=== PATIENT | female | born 1990 | race Caucasian/White ===

== ENCOUNTER → 2022-09-05 15:39 | Outpatient (CLI) | payer OTHER, SELFPAY ==
--- NOTE | ~2022-09-05 | MR_ITS ---
EXAMINATION: MR brain/brain stem wo/w con DATE: 09/05/2022 16:30 INDICATION: Chiari I malformation with return of symptoms TECHNIQUE: Magnetic resonance imaging (MRI) of the brain and brainstem was performed without and with 14 mL Multihance intravenous contrast. Sequences included sagittal and axial T1-weighted SE, axial d iffusion-weighted FS SE, axial 3D SWAN, axial T2-weighted FLAIR, and axial T2-weighted FSE. Postcontr ast axial and coronal T1-weighted SE was obtained. Apparent diffusion coefficient (ADC) maps were cre ated. COMPARISON: Cervical spine MR dated 08/05/2013 FINDINGS: Again seen are changes of a posterior fossa decompression including resection of the posterior half o f the ring of C1 for a Chiari I malformation. There are no areas of restricted diffusion to suggest a cute infarction. No intracranial hemorrhage or abnormal intracranial mass lesion. There are no intrap arenchymal signal abnormalities seen on the other pulse sequences. The ventricles are symmetric and n ormal in size. The basal cisterns remain patent. There are no abnormal extra-axial fluid collections. Flow voids are seen in the cerebral arteries on the T2-weighted sequences consistent with their expe cted patency. Contrast enhanced developmental venous anomalies are seen in the anterior left temporal lobe and in the right parietal lobe. Mild mucosal thickening the bilateral ethmoid and maxillary sin uses. Visualized orbits and soft tissues are unremarkable. There are no areas of abnormal enhancement on the post contrast images. IMPRESSION: 1. No acute intracranial process. 2. Chiari I malformation with change of prior posterior fossa decompression including resection of th e posterior half of the ring of C1. 3. 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 Reviewed, dictated and finalized at location A. AND [employer] IMPRESSION: 1. No acute intracranial process. 2. Chiari I malformation with change of prior posterior fossa decompression inc luding resection of the posterior half of the ring of C1. 3. 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
== END ==
PROVIDERS: Visit Provider Physician Assistant
DX: R20.2 Paresthesia of skin (principal); G93.5 Compression of brain; Q28.3 Other malformations of cerebral vessels
CPT/HCPCS: 70553; A9577

== ENCOUNTER 2022-11-01 10:20 | Outpatient (CLI) | payer OTHER, SELFPAY ==
[2022-11-01 17:17] LABS: Kit Draw Collected
== END 2022-11-01 10:21 | disposition home or self-care (01) ==
LOC: ANHGOSHLAB 10:21
PROVIDERS: PCP Family Medicine; Visit Provider Family Medicine
DX: Z00.8 Encounter for other general examination (principal)
CPT/HCPCS: 36415

== ENCOUNTER 2023-05-16 14:47 | Outpatient (CLI) | payer OTHER, SELFPAY | END 2023-05-16 14:48 | disposition home or self-care (01) | LOC: ANHGOSHLAB 14:48 | PROVIDERS: PCP Family Medicine; Visit Provider Family Medicine | DX: F41.9 Anxiety disorder, unspecified (principal) | CPT/HCPCS: 36415; 84443 ==

== ENCOUNTER 2024-05-07 09:01 | Outpatient (CLI) | payer OTHER, SELFPAY ==
[2024-05-07 15:45] LABS: Basophils Percent Auto 0.4 % (0.2-1.2); Eosinophils Absolute Auto 0.1 K/mm3 (0-0.3); Eosinophils Percent Auto 1.6 % (0-4.4); Hematocrit 43.3 % (37.0-47.0); Hemoglobin 14.1 g/dL (12.0-15.0); Immature Granulocyte Absolute 0.01 K/mm3 (0.00-0.031); Immature Granulocyte Percent A 0.2 % (0-0.5); Lymphocytes Absolute Auto 1.57 K/mm3 (0.9-3.2); Lymphocytes Percent Auto 31.7 % (18.3-44.2); Mean Corpuscular HGB Conc 32.6 g/dl (32-36); Mean Corpuscular Hemoglobin 32.3 pg (26-34); Mean Corpuscular Volume 99.3 fl (80-100); Mean Platelet Volume 10.1 fl (7.4-10.4); Monocytes Absolute Auto 0.3 K/mm3 (0.1-0.6); Monocytes Percent Auto 5.3 % (2.6-8.5); Neutrophils Percent Auto 60.8 % (45.5-73.1); Platelet Count Result 292 k/mm3 (150-375); Red Blood Count 4.36 M/mm3 (4.2-5.4); Red Cell Distribution Width 12.1 % (11.5-14.5)
[2024-05-07 18:14] LABS: Alanine Aminotransferase 31 U/L (6-35); Albumin Level 4.8 g/dL (3.5-5.1); Alkaline Phosphatase 38 U/L (38-126); Anion Gap 10 mmol/L (4-12); Aspartate Amino Transferase 42 U/L (14-36); Bilirubin,Total 0.6 mg/dL (0.2-1.3); Blood Urea Nitrogen 18 mg/dL (7-17); Calcium 9.5 mg/dL (8.4-10.2); Carbon Dioxide 30 mmol/L (22-30); Chloride 97 mmol/L (98-107); Cholesterol 169 mg/dL (0-200); Estimated Glomerular Filt Rate > 60; Glucose 89 mg/dL (65-110); HDL Direct 66 mg/dL; Potassium 4.3 mmol/L (3.4-5.0); Sodium 137 mmol/L (137-145); Triglycerides 108 mg/dL (<150)
[2024-05-07 18:24] LABS: LDL Cholesterol Direct 67 mg/dL
[2024-05-07 18:41] LABS: Vitamin D 25 Hydroxy 34.3 ng/mL
[2024-05-13 17:04] LABS: Thyroid Peroxidase Antibodies 1 IU/mL (<9)
== END 2024-05-07 09:02 | disposition home or self-care (01) ==
LOC: ANHGOSHLAB 09:03
PROVIDERS: PCP Family Medicine; Visit Provider Family Medicine
DX: R53.83 Other fatigue (principal); R41.89 Other symptoms and signs involving cognitive functions and awareness; F41.9 Anxiety disorder, unspecified
CPT/HCPCS: 36415; 80053; 80061; 82306; 82607; 82728; 84443; 85025; 86376

== ENCOUNTER 2025-08-15 08:19 | Outpatient (CLI) | payer OTHER, SELFPAY ==
--- OUTSIDE RECORDS SUMMARY | 2025-08-15 08:23 | XMS_ITS | Clinical Summary ---
Author Organization [facility] Address [address] [place] [address] Care Team Providers Care Legal Services Professional Name Role Phone Dottie Iverson MD Primary Care Provider + Acosta Christensen MD Unavailable [phone] Allergies Active Allergy Reactions Criticality Noted Date Comments Sesame Oil Rash Medium 03/11/2018 Medications mv-min/iron/folic /calcium/vitK (WOMEN'S MULTIVITAMIN ORAL) Take by mouth Active buPROPion SR (WELLBUTRIN SR) 150 mg 12 hr tablet 08/19/2024 Active rizatriptan (MAXALT) 10 mg tablet Take one tablet at onset of headaches, may repeat in 2 hours if needed max dose does 3 in 24 hours 27 tablet 3 05/26/2025 Active erenumab-aooe (Aimovig Autoinjector) 70 mg/mL auto-injector subcutaneous injection Inject 1 mL (70 mg total) under the skin every 30 (thirty) days 3 mL 1 06/22/2025 Active Active Problems Patient Care Coordination No te Formatting of this note is d ifferent from the original. IVF Check List Partner name: Partner : Blue Plan Completed: yes Protocol: FET with modified natural cycle/Crinone Special Instructions: needs TSH, SHG LMP: Cycles: EMP: [x]PNV []OCPS [x]Zithromax/Doxy [x]Medrol []Letrozole []Clomid []Estrace 2mg BID/TID - []Gonal F/Follistim []Menopur []Lupron []Cetrotide/Ganirelix []HCG []Lupron Trigger [x]Crinone []Lovenox/ Baby ASA start - Cycle Start BMI: Body mass index is 26.39 kg/m . CPAP Needed: No [] Medically Clear [x] Orientation: [] Placed on IVF Schedule [] Financially Clear (day 3 labs and dates needed): [] Consent Sent [] Consents Returned/Scanned into chart: [] Schedule Mailed/sent via Easy Taxit: [] IVF Injectable Meds Ordered - Pharm - [] IVF Oral Meds Pharm - [] Smart Set Orders Placed [] Confirmed Start Button [] COVID Counseling note sent to patient Problem Noted Date Diagnosed Date Benign paroxysmal positional vertigo 04/22/2024 Encounter for preconception consultation 022 Assessment & Plan (11/09/2021 1:46 PM [employer]): Discussed general preconception counseling with the patient. We reviewed all chronic medical conditions (please see individual problems for specific counseling) as well as medications, indications for her medications as well as their safety profile in . Assessed safey at home. We discussed the importance of vitamin and folic acid supplementation. We also discussed substance use and its impact on outcomes. We also discussed immunization status and discussed current recommendations for influenza and COVID vaccination in . IVF 11/09/2021 Assessment & Plan (11/09/2021 1:51 PM [employer]): Studies that compare obstetric outcome of ramirez ART and naturally occurring pregnancies suggest that the former are at increased risk of , low weight, vasa previa, defects and mortality rate, even after adjusting for age, parity, and multifetal gestations--although the magnitude of relative risk is small and these studies are limited by likely confounding factors. Therefore, it is unclear to what extent infertility, ovulation induction, or ART may contribute to the negative ART-associated obstetric outcomes described in some, but not all, studies. We recommend a echocardiogram to screen for congenital heart defects per the [place] [employer] and [place] [employer] in Medicine guidelines. Additionally we recommend weekly testing starting at 36 weeks. 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 [place] has history of two prior deliveries. The first was performed in G1 under general anesthesia due to her history of arnold chiari malformation and inability to receive neuraxial anesthesia. She reports that was complicated by a previa which moved prior to her delivery. G2 was an spontaneous miscarriage. In G3 she underwent a repeat at 36 weeks due to persistent previa and concern for possible placenta accreta. She meet with gynecologic oncology and was prepared for a possible hysterectomy. Placental pathology was negative for morbidly adherent placenta. She desires to discuss her risk of morbidly adherent placenta in a future . We discussed the pathophysiology of placenta accreta. Her history which increases her risk of placenta accreta include history of delivery x two and a history of placenta previa. She is at increase risk of placenta previa of approximately 2- 3% in the event she were to have a persistent anterior placenta previa with two prior deliveries her overall risk of placenta accreta spectrum would be 30- 40%. However ultrasound imaging would be used to either increase or decrease that risk based on findings. Additionally, there has been recent studies evaluating the risk of placenta accreta in IVF pregnancies and noted that IVF may be an independent risk factor for abnormal placentation (Modest et al, 2020). We also discussed the risk to her of a hysterectomy. Overall, risk of maternal morbidity and mortality are significantly higher with hysterectomy then with delivery alone. However, a non-urgent planned hysterectomy with adequate surgical preparation, blood bank availability, and expert surgical team decreases that risk significantly. It is almost impossible to estimated true risk of morbidly adherent placenta due to the large number of variable factors likely to effect her . We do overall believe she is an acceptable risk. She will deliver by repeat delivery regardless due to her history of Arnold-Chiari malformation and need to avoid neuraxial anesthesia. Migraine without aura, intra ctable, without status migrainosus 04/16/2012 Overview (05/06/2018): - Neurologist: Dr. Alfaro [facility] and do not think her migraines are related to Elliot Ferguson. - Uses Maxalt to break migraines, no preventative medication. Did not use Maxalt during prior . - Takes Unasom daily and feels that helps prevent migraines - Typically gets 4-6 per month - Previously discussed with patient that Maxalt (Rizatriptan) is category C in . Our recommendation is to take as small of a dose as infrequently as possible, but if she is having a bad migraine she can take it. Also recommend conitnued use of Unasom for migraines/nausea Assessment & Plan (11/09/2021 1:48 PM [employer]): We discussed that the course of migraine frequency in is unpredictable, however most women report improvement. She follows with neurology for her migraines and was last seen in 2019. She currently uses abortive therapies. Although triptans are class C medications, we would recommend alternative medications as first line, including Tylenol and caffeine. However in the setting of her persistent and recurrent migraines tripans are acceptable. We also discussed Aimovig and transplacental passage and she has plans to stop until pregacy. Assessment & Plan (04/08/2018 10:45 AM CDT): Reports only 1 migraine since her last visit. Arnold-Chiari malformation 09/08/2008 Overview (10/07/2018): -s/p Chiari decompression surgery x2 and lumbar spinal cord detethering surgery with normal imaging thereafter -Baseline complete LUE numbness including L shoulder, L breast, and L arm. She feels tingling like her arm is asleep and difficulty differentiating hot/cold sensations, but has normal strength. Reports this has unchanged -Previously followed with Dr. Sandoval Neurosurgery at [facility] and cleared for prior . She has not seen Dr. Sandoval since her last -cleared for valsalva but patient was ineligible for regional anesthesia and underwent a primary under general anesthesia. Assessment & Plan (11/09/2021 1:49 PM [employer] DIRECT[employer]): Ms. [place] and I reviewed that an asymptomatic Type I Chiari malformation has an excellent prognosis in . She is familiar with the risks associated from her two prior . We reviewed that the main concerns of a Chiari malformation is the risk of increased intracranial pressure during labor, regional anesthesia, and delivery. We do not anticipate that itself will worsen her Chiari malformation. We do recommend consultation with a Neurologist in the period she has not seen a neurologist since 2019 and is in the process of making a follow up appointment. Additionally, we recommend a consultation with Anesthesia once she is . She has previously been counseled by anesiologists and has felt that she is not a candidate for neuraxial anesthesia and has had two prior deliveries under general anesthesia. She again would desire a repeat under general anesthesia. The etiology of Chiari malformations remains unclear, although given the possible genetic basis, a level II ultrasound is recommended at 18-20 weeks to thoroughly evaluate anatomy. We did discuss that although major malformations can be detected via ultrasound 90-95% of the time, this modality is limited and will not be able to detect all abnormalities, especially ones that develop postnatally Resolved Problems Problem Noted Date Diagnosed Date Resolved Date Rash 10/08/2018 11/06/2018 Overview (10/08/2018): methylprednisolone steroid pack Dizziness 09/13/2018 09/18/2018 Overview (09/17/2018): - [facility] VISIT 09/13/2018: reports dizziness and just feeling generally unwell - workup unremarkable, LR bolus and antiemetics given, patient reports improvement in symptoms. - encouraged rest and hydration Placenta previa centralis in second trimester 09/13/19 19 10/07/2018 Overview (09/25/2018): Added automatically from request for surgery [id number] Gestational hypertension, third trimester 09/12/2018 10/07/2018 Overview (09/18/2018): - Mildly elevated BP on 09/05 and 09/12 - Denies symptoms of preE - 09/16/18: UPC 0.1, CMP wnl, Uric Acid 3.1 - For twice weekly NSTs - Labs ordered for Sunday, patient aware - Given preE precautions Assessment & Plan (09/18/2018 2:20 PM [employer]): BP wnl today, denies symptoms of preE contractions 08/18/2018 018 Overview (08/21/2018): - Patient presented to [facility] 08/18 with contractions that were occurring every other minute for 2.5 hours. Contractions had decreased in intensity on arrival to [facility]. - SSE with fingertip dilation visually, no vaginal bleeding noted, negative ferning/nitrazine with no e/o ROM. - No contractions noted on toco - Given 1L LR bolus -> resolution of contractions and pt desired discharge home. - Reactive NST Rib pain 08/05/2018 10/07/2018 Overview (08/05/2018): 08/05/18: rx lidocaine patches. JIR Vaginal bleeding during 07/11/2018 09/05/2018 Overview (07/11/2018): -Patient seen in [facility] 07/11 for brown vaginal spotting. No other complaints. - VSS - SSE: no active bleeding, no clots, -valsalva, -pooling, no blood noted in vault. minimal brown blood on speculum. Cervix normal appearing, visually closed. Patient reassured -Rh+ -FWB: reactive NST - DW Dr. Acevedo, disposition home to follow up in [facility] clinic. Precautions reviewed Complete Placenta Previa wit h Suspected Accreta 05/27/2018 10/07/2018 Overview (09/12/2018): Patient previously counseled regarding the obstetric implications of placenta previa with suspected accreta and the risks. Recommended for delivery 35-36 weeks, but patient strongly desires 36 weeks. - Seen by [employer] ON[employer] 09/12/17. Plan for them to be present at the delivery. Midline vertical incision, cysto available and ready. - Anesthesia consult and Peds consult scheduled 09/18 -Given we are planning a late delivery, I do recommend admin of BMZ to be given on 09/23 and 09/24. Patient is scheduled to have BMZ in clinic on 09/23 and 09/24/18. - C/Section scheduled 09/25/2018 @ 0800/1030. Pt aware. Assessment & Plan (07/22/2018 9:32 AM [employer]UR[employer] DIRECT[employer]): Still previa as of 07/22/18 cardiac echogenic focus, antepartum 05/27/2018 10/07/2018 Overview (07/01/2018): -Left sided EIF noted on specialized anatomy -NIPT negative History of low transverse section 03/11/2018 10/07/2018 Overview (09/17/2018): - 12/2015: had a planned CS at 39w0d under general anesthesia because pt could not have epidural anesthesia given Chiari malformation -Plan for repeat under GA at 36 weeks given diagnosis of suspected accreta. Low back pain during pregnan cy in first trimester 03/11/2018 10/07/2018 Overview (05/06/2018): Previously with pelvic floor myofascial exam. Referred to Pelvic floor PT and symptoms have improved. Supervision of high risk pre gnancy in third trimester 03/08/2018 10/07/2018 Overview (09/23/2018): Patient would appreciate if possible to have a member from [facility], anesthesia and apparel sales leader-onc to meet with her in her room as a group prior to heading back to the OR [] Co-management vs. [x] Full [facility] Care; Referring Provider: Dr Denis Glez [x] Dating Criteria: IVF [x] Labs: Rh [+], Ab [neg], Rubella [Imm], HIV [neg], HepBSAg [neg], RPR[neg], GC/CT [neg/neg] [x] Genetic Screening: declines [x] CBC/Hgb 10.8/32.1/191 [x] UCx negative [x] Pap: 05/2015 wnl [] EPDS ; [facility] referral (if indicated) 2nd Tri Labs: [x] Anatomy ultrasound limited heart views but nl echo [x] ECHO wnl [x] CBC/1hr gtt at 24-28wks: 10.8/32.1 plt 191 1 hour 113 [x] Flu Shot (Sep-Dec) [x] Tdap (27-36wks) 3rd Tri Labs: [x] CBC/HIV/RPR: 10.6/30.6 plt 146, HIV neg, RPR NR [x] GBS negative [x] anesthesia consult [x] peds consult Counselling [x] MOD: rC/S at 36 weeks 2/2 placenta accreta. [x] Place of delivery: [facility] [x] MOC: counseled and declines, IVF x2 [x] Method of feeding: breast [x] [employer] Professor: [] PP Depression Discussed, EPDS resulting from ass isted reproductive technology, antepartum 03/06/201809/11 Overview (07/22/2018): - s/p progesterone until 12 weeks. [x] specialized anatomic survey at 18 weeks- complete previa [x] ECHO complete and wnl Missed 07/23/2017 03/08/2018 Skin striae 02/20/2016 03/08/2018 Ductal candidiasis of breast 01/21/2016 03/08/2018 Encounters Date Type Department Care Team Description 06/10/2025 Telephone [facility] Medicine Orthopaedic Surgery [address] [place] [address] Kasia Palma ATC 06/02/2025 2:50 PM CDT Office Visit [facility] Medicine Orthopaedic Surgery [address] [place] [address] Flower Alex MD Bilateral foot pain (Primary Dx); Hallux rigidus of right foot 06/02/2025 2:13 PM CDT - 06/02/2025 11:59 PM CDT Hospital Encounter [id number] [address] [place] [address] [address] [place] [address] Bilateral foot pain Discharge Disposition: Discharge to home or self care from Last 3 Months Immunizations Immunization Administration Dates Next Due Hep A, Adult 03/26/2019 Influenza, Quadrivalent, Mili l Culture-based MDCK, Antibiotic Free, Intramuscular 07/01/2018 Influenza, Quadrivalent, Rec ombinant, Egg Free, Preservative Free, Intramuscular 06/10/2020,06/25/2019 Influenza, Trivalent, Preser vative Free, Intramuscular 07/24/2017,06/09/2015,06/21/2014 MMR 09/25/2018(Deferred: Contraindic ation) Tdap 08/05/2018,09/29/2015 Surgical History Surgery Date Site/Laterality Comments OR TONSILLECTOMY PRIMARY/SECONDARY <AGE 12 Tonsillectomy - (Added by TW Conv) CRANIECTOMY SUBOCCIPITAL W/ CERVICAL LAMINECTOMY / CHIARI BACK SURGERY BRAIN SURGERY SECTION 12/15/2015 Medical History Medical History Date Comments Encounter for general adult medical examination without abnormal findings Routine history and physical examination of adult - (Added by TW Conv) Encounter for procreative management Patient desires - (Added by TW Conv) Fallopian insufflation for f ertility testing - (Added by TW Conv) Fallopian insufflation fo r fertility testing - (Added by TW Conv) Encounter for screening for other viral diseases Screening for rubella - (Add ed by TW Conv) Encounter for screening for infections with predominantly sexual mode of transmission Screening for STDs (sexually transmitted diseases) - (Added by TW Conv) History of migraine during p regnancy - (Added by TW Conv) History of migraine during p regnancy - (Added by TW Conv) Placenta previa specified as without hemorrhage Placenta previa, antepartum - (Added by TW Conv) Other disorders of Enc ounter for antepartum consultation regarding - (Added by TW Conv) 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 (HCC) Arnold-Chiari malformati on - (Added by TW Conv) Other ovarian dysfunction Other ovarian dysfunction - (Added by TW Conv) Other ovarian dysfunction Other ovarian dysfunction - (Added by TW Conv) Migraine Anxiety Family History Medical History Relation Name Comments Depression Brother Depression - (A dded by TW Conv) Hypertension Father Hypertension - (Added by TW Conv) Lymphoma Father Hypertension Father's Sister Hypertension - (Added by TW Conv) Heart disease Maternal Grandfather Heart Disease - (Added by TW Conv) Heart disease Maternal Grandmother Heart Disease - (Added by TW Conv) Lymphoma Maternal Grandmother Maligna nt Lymphoma - (Added by TW Conv) Migraines Mother Migraine Headac he - (Added by TW Conv) Hypertension Paternal Grandmother Hyperte nsion - (Added by TW Conv) Relation Name Status Comments Brother Father Father's Sister Maternal Grandfather Maternal Grandmother Mother Paternal Grandmother Social History Tobacco Use Types Packs/Day Years Used Date Smoking Tobacco: Never Smokeless Tobacco: Never Tobacco Cessation:Counseling Given: Not Answered Alcohol Use Standard Drinks/Week Comments Yes 0 (1 standard drink = 0.6 oz pur e alcohol) social AUDIT-C Answer Date Recorded Q1: How often do you have a drink containing alc ohol? 2-4 times a month 03/16/2025 Q2: How many drinks containi ng alcohol do you have on a typical day when you are drinking? 3 or 4 03/16/2025 Frequency of Binge Drinking Not on file 03/2025 Comments No Sex and Gender Information Value Date Recorded Sex Assigned at Not on file Legal Sex Female 5:14 AM [employer] Gender Identity Female 03/11/2018 8:41 AM CDT Sexual Orientation Straight 11/23/2020 1: 53 PM CDT Occupation Industry Job Start Date Job End Date Teacher Not on file Not on file Not on file Obstetrics History Para Term AB IAB SAB Ectopic Multiple Livin g Live Births 3 2 1 1 1 0 1 0 0 2 2 Date Outcome GA Total Labor Labor/2nd/3rd Weight Sex Type Anes PTL Twila A1 A5 Name Clin 2015 Term 39w 0d 3.742 kg (8 lb 4 oz) M CS-Un spec Genera l N Livin g 2016 SAB 2018 36w 0d 2.72 kg (5 lb 15.9 oz) F CS-LT ranv Genera l N Livin g 8 9 ALLIS ON,GI RLHAN Romy Abbasi MD Complications:Other (Comment ) Delivery Location:[facility] Main C ampus ([facility] L AND D PROCEDURE) Last Filed Vital Signs Vital Sign Reading Time Taken Comments Blood Pressure 119/80 03/16/2025 11:04 AM CDT Pulse 82 04/24/2024 3:59 PM CDT Temperature 36.5 C (97.7 F) 04/24/2024 3:59 PM CDT Respiratory Rate 18 04/24/2024 3:59 PM CDT Oxygen Saturation 97% 04/24/2024 3:59 PM CDT Inhaled Oxygen Concentration - - Weight 73.8 kg (162 lb 9.6 oz) 03/16/2025 11:04 AM CDT Height 165.1 cm (5' 5) 03/16/2025 11:04 AM CDT Body Mass Index 27.06 03/16/2025 11:04 AM CDT Plan of Treatment Health Maintenance Due Date Last Done Comments Hepatitis C Screening 1988 Varicella Vaccines (1 of 2 - 13+ 2-dose series) 2001 HPV Vaccines (1 - 3-dose SCDM series) 12/01/2015 Depression Screening 11/06/2019 11/06/2018 Cervical Cancer Screening 11/14/2022 11/14/2021, Influenza Vaccine (#1) 2025 , 06/13/2021, 06/22/2020, Additional history exists Regular Well Visit/Exam 18-64 03/16/2026 03/16/2025, 10/08/2023, 11/14/2021 DTaP/Tdap/Td Vaccine (8 - Td or Tdap) 08/05/2028 08/05/2018, 09/29/2015, 04/14/2003, Additional history exists Hepatitis B Screening Completed 12/23/1994 , 06/09/1994, 04/05/1994 Pneumococcal vaccine <65 Aged Out No longer eligible based on patient's age to complete this topic Procedures Procedure Name Priority Date/Time Associated Diagnosis Comments XR FOOT RIGHT 3 OR MORE VIEWS Schedule Routine, Read Routine (OP Routine) 06/02/2025 2:32 PM CDT Bilateral foot pain XR FOOT LEFT 3 OR MORE VIEWS Schedule Routine, Read Routine (OP Routine) 06/02/2025 2:32 PM CDT Bilateral foot pain PAP AND HIGH RISK HPV, REFLEX TO GENOTYPING Routine 11/14/2021 11:35 AM [employer] Well woman exam from Last 3 Months or Most Recently Relevant to Health Maintenance Results * XR Foot Right 3 or More Views (06/02/2025 2:32 PM CDT) Anatomical Region Laterality Modality Lower Extremities, Foot Right Computed Radiography 06/02/2025 4:39 PM CDT Impressions 06/02/2025 4:39 PM CDT 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 Dictated by: Lauryn Zarco M.D. The radiology attending physician has personally reviewed this study, and had reviewed and/or edited this written report and agrees with it. Electronically signed by: Patric Weir M.D. Narrative 06/02/2025 4:39 PM CDT EXAMINATION: XR FOOT LEFT 3 OR MORE VIEWS, XR FOOT RIGHT 3 OR MORE VIEWS HISTORY: Bilateral foot pain FINDINGS: 3 radiographs each of the bilateral feet were provided for interpretation with comparison to 05/07/2024. There is no acute fracture or dislocation. Alignment is normal. There is moderate right and mild left 1st metatarsophalangeal joint osteoarthritis. Procedure Note Patric Weir MD PhD - 06/02/2025 EXAMINATION: XR FOOT LEFT 3 OR MORE VIEWS, XR FOOT RIGHT 3 OR MORE VIEWS HISTORY: Bilateral foot pain FINDINGS: 3 radiographs each of the bilateral feet were provided for interpretation with comparison to 05/07/2024. There is no acute fracture or dislocation. Alignment is normal. There is moderate right and mild left 1st metatarsophalangeal joint osteoarthritis. 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 Dictated by: Lauryn Zarco M.D. The radiology attending physician has personally reviewed this study, and had reviewed and/or edited this written report and agrees with it. Electronically signed by: Patric Weir M.D. 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 Dictated by: Lauryn Zarco M.D. The radiology attending physician has personally reviewed this study, and had reviewed and/or edited this written report and agrees with it. Electronically signed by: Patric Weir M.D. Narrative 06/02/2025 4:39 PM CDT EXAMINATION: XR FOOT LEFT 3 OR MORE VIEWS, XR FOOT RIGHT 3 OR MORE VIEWS HISTORY: Bilateral foot pain FINDINGS: 3 radiographs each of the bilateral feet were provided for interpretation with comparison to 05/07/2024. There is no acute fracture or dislocation. Alignment is normal. There is moderate right and mild left 1st metatarsophalangeal joint osteoarthritis. Procedure Note Patric Weir MD PhD - 06/02/2025 EXAMINATION: XR FOOT LEFT 3 OR MORE VIEWS, XR FOOT RIGHT 3 OR MORE VIEWS HISTORY: Bilateral foot pain FINDINGS: 3 radiographs each of the bilateral feet were provided for interpretation with comparison to 05/07/2024. There is no acute fracture or dislocation. Alignment is normal. There is moderate right and mild left 1st metatarsophalangeal joint osteoarthritis. 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 Dictated by: Lauryn Zarco M.D. The radiology attending physician has personally reviewed this study, and had reviewed and/or edited this written report and agrees with it. Electronically signed by: Patric Weir M.D. Flower Alex MD IMG XR PROCEDURES Final Re sult * Pap and High Risk HPV, reflex to Genotyping (11/14/2021 11:35 AM [employer]URSING DIRECTOR) CLINICAL INFORMATION: Information not provided [facility] LMP 11/11/21 [facility] [facility] Previous Pap INFORMATION NOT PROVIDED [facility] Prev. Bx INFORMATION NOT PROVIDED [facility] SOURCE: Cervix, Endocervix [facility] Pap, specimen adequacy Satisfactory for evaluation. Endocervical/mendoza sformation zone component present. [facility] HPV interp Negative for intraepithelial lesion or malignancy. [facility] Is Technician LM, CT(ASCP) CT screening location: [place] [address] [place] [address] [facility] Comment [facility] Comment: EXPLANATORY NOTE: The Pap is a screening test for cervical cancer. It is not a diagnostic test and is subject to false negative and false positive results. It is most reliable when a satisfactory sample, regularly obtained, is submitted with relevant clinical findings and history, and when the Pap result is evaluated along with historic and current clinical information. Human papillomavirus DNA, High Risk E6/E7 Not Detected NOT DETECTED [facility] Diagnostic s/[facility] Comment: Not Detected High Risk HPV types (16,18,31,33,35,39,45,51,52, 56,58,59,66,68) were not detected. Other HPV types which cause anogenital lesions may be present. The significance of the other types of HPV in malignant processes has not been established. Methodology: Real Time PCR Thin prep 11/14/2021 11:3 5 AM [employer] 11/15/2021 1:43 AM [employer] Noemi Talbert NP LAB CYTOLOGY ORDERAB LES Final Result [facility] [address] [place] [address] [employer] [facility] [address] [place] [address] from Last 3 Months or Most Recently Relevant to Health Maintenance [facility] Advance Directives For more information, please contact: [phone] * Full Code (Latest Code Status on File) Date Activated Date Inactivated Comments 09/25/2018 1:45 PM 09/28/2018 3:32 PM * Full Code Date Activated Date Inactivated Comments 09/25/2018 8:27 AM 09/25/2018 1:45 PM Full CPR in case of cardiopulmonary arrest Care Teams Legal Services Professional Relationship Specialty Start Date End Date Dottie Iverson MD PCP - General 05/02/17 Acosta Christensen MD Public Safety Dispatcher Cardiology 08/08/23
--- OUTSIDE RECORDS SUMMARY | 2025-08-15 08:23 | XMS_ITS | Encounter Summary ---
Author Organization [facility] Healthcare Address [address] [place] [address] Care Team Providers Care Speed Operator Name Role Phone Dottie Iverson MD Primary Care Provider + Acosta Christensen MD Unavailable [phone] Encounter Details Date Type Department Care Team (Late st Contact Info) Description 09/18/2018 Documentation [facility] Anesthesia [address] [place] [address] Sudeep Guevara MD Anesthesia Record Procedure Summary Procedure Name Responsible Anesthesiologist Anesthesia Start Time Anesthesia Stop Time Labor Consult Events No events on file. Meds * Agents No agents on file. * Blood No blood administrations on file. Lines, Drains, and Airways No LDAs on file. documented in this encounter Social History Tobacco Use Types Packs/Day Years Used Date Smoking Tobacco: Never Smokeless Tobacco: Never Alcohol Use Standard Drinks/Week Comments Yes 0 (1 standard drink = 0.6 oz pur e alcohol) social Comments Yes Sex and Gender Information Value Date Recorded Sex Assigned at Not on file Legal Sex Female 5:14 AM BILL CHECKER Gender Identity Female 03/11/2018 8:41 AM CDT Sexual Orientation Straight 11/23/2020 1: 53 PM CDT Occupation Industry Job Start Date Job End Date Teacher Not on file Not on file Not on file documented as of this encounter Plan of Treatment Not on file documented as of this encounter Visit Diagnoses Not on filedocumented in this encounter Additional Health Concerns Infection Onset Date Last Indicated Resolved Time COVID: Suspected 08/20/2021 08/20/2021 08/20/2021 8:31 AM BILL CHECKER COVID: Suspected 05/29/2022 05/29/2022 05/29/2022 9:39 AM CDT COVID19 05/29/2022 05/29/2022 06/08/2022 3:05 AM CDT COVID: Recovered Comment:Added based on recent COVID infection. 06/08/2022 08/16/2022 09/06/2022 3:[address] COVID: Suspected 04/06/2023 04/06/2023 04/06/2023 4:04 PM CDT documented as of this encounter Care Teams Speed Operator Relationship Specialty Start Date End Date Dottie Iverson MD PCP - General 05/02/17 Acosta Christensen MD Investor Cardiology 08/08/23 documented as of this encounter
--- OUTSIDE RECORDS SUMMARY | 2025-08-15 08:23 | XMS_ITS | Clinical Summary ---
Author Organization [facility] Address [address] [place] [phone] Phone Care Team Providers Care Traffic Observer Name Role Phone Dottie Iverson MD Primary Care Provider Allergies No known active allergies Medications No known medications Social History Tobacco Use Types Packs/Day Years Used Date Smoking Tobacco: Never Assessed Alcohol Use Standard Drinks/Week Comments Yes 0 (1 standard drink = 0.6 oz pur e alcohol) Comments No Sex and Gender Information Value Date Recorded Sex Assigned at Not on file Legal Sex Female 4:[address] SPECIALIST Gender Identity Not on file Sexual Orientation Not on file Last Filed Vital Signs Vital Sign Reading Time Taken Comments Blood Pressure 149/77 09/26/2014 8:[address] SPECIALIST Pulse - - Temperature 36.6 C (97.9 F) 09/26/2014 8:[address] SPECIALIST Respiratory Rate 16 09/26/2014 8:[address] SPECIALIST Oxygen Saturation 100% 09/26/2014 8:[address] SPECIALIST Inhaled Oxygen Concentration - - Weight 63.5 kg (140 lb) 09/26/2014 8:[address] SPECIALIST Height 165.1 cm (5' 5) 09/26/2014 8:[address] SPECIALIST Body Mass Index 23.3 09/26/2014 8:[address] SPECIALIST Plan of Treatment Health Maintenance Due Date Last Done Comments DTAP/TDAP/TD VACCINES (1 - Tdap) 12/01/2007 HEPATITIS B VACCINES (1 of 3 - 19+ 3-dose series) 11/09 HPV/Cotest (21-29) 2009 CERVICAL CANCER SCREENING 2018 HPV/Cotest (30-65) 2018 PAP SMEAR 2018 INFLUENZA VACCINE (#1) 2025 HPV VACCINES (No Doses Required) Completed Care Teams Traffic Observer Relationship Specialty Start Date End Date Dottie Iverson MD PCP - General 05/27/09
[2025-08-15 09:20] LABS: Hematocrit 40.1 % (37.0-47.0); Hemoglobin 13.5 g/dL (12.0-15.0); Immature Granulocyte Percent A 0.4 % (0-0.5); Lymphocytes Absolute Auto 1.25 K/mm3 (0.9-3.2); Mean Corpuscular HGB Conc 33.7 g/dl (32-36); Mean Corpuscular Hemoglobin 32.3 pg (26-34); Mean Corpuscular Volume 95.9 fl (80-100); Nucleated Red Blood Cells Absolute Auto 0.000 K/mm3 (0.0-0.012); Nucleated Red Blood Cells Perc 0.0 % (0.0-0.2); Platelet Count Result 240 k/mm3 (150-375); Red Blood Count 4.18 M/mm3 (4.2-5.4); White Blood Count 4.8 K/mm3 (4.5-10.0)
[2025-08-15 09:44] LABS: Alanine Aminotransferase 21 U/L (6-35); Albumin Level 4.7 g/dL (3.5-5.1); Alkaline Phosphatase 38 U/L (38-126); Anion Gap 8 mmol/L (4-12); Aspartate Amino Transferase 26 U/L (14-36); Bilirubin,Total 0.7 mg/dL (0.2-1.3); Blood Urea Nitrogen 13 mg/dL (7-17); Calcium 9.7 mg/dL (8.4-10.2); Carbon Dioxide 27 mmol/L (22-30); Chloride 104 mmol/L (98-107); Cholesterol 152 mg/dL (0-200); Estimated Glomerular Filt Rate > 60; Glucose 80 mg/dL (65-110); HDL Direct 65 mg/dL; Potassium 5.1 mmol/L (3.4-5.0); Sodium 139 mmol/L (137-145); Total Protein 7.5 g/dL (6.3-8.2); Triglycerides 67 mg/dL (<150)
[2025-08-15 10:20] LABS: Thyroid Stimulating Hormone 1.300 uIU/mL (0.465-4.680)
== END 2025-08-15 08:20 | disposition home or self-care (01) ==
LOC: ANHLAB 08:21
PROVIDERS: PCP Family Medicine; Visit Provider Student in an Organized Health Care Education/Training Program
DX: Z00.00 Encounter for general adult medical examination without abnormal findings (principal); Z13.0 Encounter for screening for diseases of the blood and blood-forming organs and certain disorders involving the immune mechanism; Z13.220 Encounter for screening for lipoid disorders; Z13.29 Encounter for screening for other suspected endocrine disorder; E55.9 Vitamin D deficiency, unspecified; F41.1 Generalized anxiety disorder
CPT/HCPCS: 36415; 80053; 80061; 82306; 84443; 85025